=== PATIENT | female | born 1990 | race Caucasian/White ===

== ENCOUNTER 2019-07-15 12:17 | Day surgery (SDC) | payer OTHER, SELFPAY ==
[2019-07-15] VITALS (12 sets, daily range): BP systolic 116–139; BP diastolic 71–108; PULSE 80–134; RESP 13–22; TEMP 36.4–37.7; O2SAT 97–100
--- NOTE | ~2019-07-15 | US_ITS ---
EXAMINATION: US OB <=14 wk fetus w TV DATE: 07/15/2019 16:14 INDICATION: Bleeding during first trimester TECHNIQUE: Real-time pelvic transabdominal and transvaginal ultrasound was performed. COMPARISON: None. FINDINGS: The uterus measures 11.7 x 4.7 x 6.3 cm. No intrauterine gestational sac is identified. Th ere is mobile echogenic debris in the endometrial canal which measures 13 mm in maximum thickness. Th ere is a 1.6 cm intramural fibroid The right ovary measures 2.6 x 1.5 x 0.9 cm. The left ovary measures 2.0 x 1.8 x 1.5 cm. There is no free fluid in the pelvis. IMPRESSION: 1. Findings suggestive of failure. Reviewed, dictated and finalized at location A.
[2019-07-15 12:51] LABS: Basophils Absolute Auto 0.1 K/mm3 (0.0-0.1); Basophils Percent Auto 0.5 % (0.2-1.2); Eosinophils Absolute Auto 0.1 K/mm3 (0-0.3); Eosinophils Percent Auto 0.8 % (0-4.4); Hematocrit 41.1 % (37.0-47.0); Hemoglobin 13.7 g/dL (12.0-15.0); Immature Granulocyte Absolute 0.05 K/mm3 (0.00-0.031); Immature Granulocyte Percent A 0.5 % (0-0.5); Lymphocytes Absolute Auto 2.47 K/mm3 (0.9-3.2); Lymphocytes Percent Auto 25.1 % (18.3-44.2); Mean Corpuscular HGB Conc 33.3 g/dl (32-36); Mean Corpuscular Hemoglobin 27.5 pg (26-34); Mean Corpuscular Volume 82.4 fl (80-100); Mean Platelet Volume 8.8 fl (7.4-10.4); Monocytes Absolute Auto 0.7 K/mm3 (0.1-0.6); Monocytes Percent Auto 6.8 % (2.6-8.5); Neutrophils Absolute Auto 6.5 K/mm3 (1.3-6.7); Neutrophils Percent Auto 66.3 % (45.5-73.1); Platelet Count Result 332 k/mm3 (150-375); Red Blood Count 4.99 M/mm3 (4.2-5.4); Red Cell Distribution Width 13.1 % (11.5-14.5); White Blood Count 9.8 K/mm3 (4.5-10.0)
[2019-07-15] MEDS: SODIUM CHLORIDE 0.9% IV 1,000 ML 999 ML IV CONT ×2 (13:16)
--- NOTE | 2019-07-15 14:01 | ED.GENADULT ---
HPI - General Adult General Chief complaint: Unspecified Stated complaint: having a miscarriage Time Seen by Provider: 07/15/19 12:34 Source: patient Mode of arrival: ambulatory Limitations: no limitations Related Data Home Medications Medication Instructions Recorded Confirmed PNV cmb#95-ferrous fumarate-FA 1 tablet PO DAILY 07/15/19 [] Allergies Allergy/AdvReac Type Severity Reaction Status Date / Time No Known Allergies Allergy Unverified 07/15/19 12:26 PMFSH Family History Family History (Updated 12/21/13 @ 07:13 by DOCTOR UNKNOWN) Father Carcinoma of colon Social History Social History Smoking status: Never smoker Alcohol intake: current Gender identity (if verbalized by the patient): Female Course Course Emergency Course: Patient in the room aware of case findings treatment plan and diagnosis hydrated in the emergency department is hemodynamically stable at this time Consultations Consultation #1: Discussed case with telephoto engineer who will take patient to the surgical suite for D&C Time: 16:45 Vital Signs Vital signs: Vital Signs Temperature 97.6 F 07/15/19 12:24 Pulse Rate 134 H 07/15/19 12:24 Respiratory Rate 18 07/15/19 12:24 Blood Pressure 139/108 H 07/15/19 12:24 Pulse Oximetry 100 07/15/19 12:24 Temperature 97.6 F 07/15/19 12:24 Pulse Rate 100 07/15/19 15:55 Respiratory Rate 20 07/15/19 15:55 Blood Pressure 122/86 07/15/19 15:55 Pulse Oximetry 100 07/15/19 15:55 Medical Decision Making MDM Narrative Medical decision making narrative: Patient with miscarriage with retained products is hemodynamically stable hydrated in the emergency department will be sent to the surgical suite for D&C by telephoto engineer Vital Signs Vital Signs: Vital Signs Temperature 97.6 F 07/15/19 12:24 Pulse Rate 134 H 07/15/19 12:24 Respiratory Rate 18 07/15/19 12:24 Blood Pressure 139/108 H 07/15/19 12:24 Pulse Oximetry 100 07/15/19 12:24 Temperature 97.6 F 07/15/19 12:24 Pulse Rate 100 07/15/19 15:55 Respiratory Rate 20 07/15/19 15:55 Blood Pressure 122/86 07/15/19 15:55 Pulse Oximetry 100 07/15/19 15:55 Lab Data Result diagrams: 07/15/19 12:40 Labs: Lab Results 07/15/19 07/15/19 07/15/19 Range/Units 12:40 12:40 12:40 WBC 9.8 (4.5-10.0) K/mm3 RBC 4.99 (4.2-5.4) M/mm3 Hgb 13.7 (12.0-15.0) g/dL Hct 41.1 (37.0-47.0) % MCV 82.4 (80-100) fl MCH 27.5 (26-34) pg MCHC 33.3 (32-36) g/dl RDW 13.1 (11.5-14.5) % Plt Count 332 (150-375) k/mm3 MPV 8.8 (7.4-10.4) fl Immature Gran % (Auto) 0.5 (0-0.5) % Neut % (Auto) 66.3 (45.5-73.1) % Lymph % (Auto) 25.1 (18.3-44.2) % [place] % (Auto) 6.8 (2.6-8.5) % Eos % (Auto) 0.8 (0-4.4) % Baso % (Auto) 0.5 (0.2-1.2) % Lymph # (Auto) 2.47 (0.9-3.2) K/mm3 [place] # (Auto) 0.7 H (0.1-0.6) K/mm3 Eos # (Auto) 0.1 (0-0.3) K/mm3 Baso # (Auto) 0.1 (0.0-0.1) K/mm3 Abs Immat Gran (auto) 0.05 H (0.00-0.031) K/mm3 Absolute Neuts (auto) 6.5 (1.3-6.7) K/mm3 Absolute Nucleated RBC 0.0 (0.0-0.012) K/mm3 Nucleated RBC % 0.0 (0.0-0.2) % Beta HCG, Quant 7226.00 mIU/ML Blood Type O Positive Doses of RhIg Required 0 Imaging Data Radiologist's impression: ITS Impressions Obstetrics Ultrasound 07/15/19 16:15 IMPRESSION: 1. Findings suggestive of failure. Discharge Plan Discharge Clinical Impression: Threatened miscarriage Patient Disposition: Still a Patient Condition: Stable Prescriptions: No Action PNV cmb#95-ferrous fumarate-FA [] 28 mg iron- 800 mcg Tablet 1 tablet PO DAILY RF: 0 Follow-up/Referrals: UNKNOWN,DOCTOR [Primary Care Provider] -
[2019-07-15 16:53] LABS: Hematocrit 36.5 % (37.0-47.0)
--- NOTE | 2019-07-15 16:53 | PC.NURSE ---
Last PO intake 1100 today
--- NOTE | 2019-07-15 17:09 | PM.IMHP ---
H&P: HPI History of Present Illness Chief complaint: having a miscarriage Narrative: Briseyda Porter is a 28 year old female who was admitted in 1st trimester complaining vaginal bleeding. She has an ultrasound which shows retained products conception after a fairly heavy bleed she is admitted for suction dilatation curettage Review of Systems Review of Systems: All systems reviewed & are unremarkable except as noted in HPI and below PMFSH Family History Family History Father Carcinoma of colon Social History Social History Smoking status: Never smoker Alcohol intake: current Gender identity (if verbalized by the patient): Female Meds Home Medications and Allergies Home Medications Medication Instructions Recorded Confirmed Type PNV cmb#95-ferrous fumarate-FA 1 tablet PO DAILY 07/15/19 History [] Allergies Allergy/AdvReac Type Severity Reaction Status Date / Time No Known Allergies Allergy Unverified 07/15/19 12:26 Vital Signs Vital Signs - 24 hr 07/15/19 12:24 07/15/19 12:31 07/15/19 12:35 Temperature 97.6 F Pulse Rate 134 H 93 98 Respiratory Rate 18 Blood Pressure 139/108 H 136/92 H 125/92 H Pulse Oximetry 100 07/15/19 12:36 07/15/19 13:50 07/15/19 14:50 Temperature Pulse Rate 125 H 95 92 Respiratory Rate 13 22 H Blood Pressure 131/98 H 128/84 138/87 Pulse Oximetry 100 100 07/15/19 15:55 07/15/19 16:50 Temperature Pulse Rate 100 80 Respiratory Rate 20 17 Blood Pressure 122/86 125/92 H Pulse Oximetry 100 97 Exam Const: General: no acute distress Eyes: General: appearance normal, both eyes and all related structures Neck: Neck: supple and no JVD Thyroid: thyroid normal Resp: Effort & Inspection: normal respiratory effort Auscultation: clear to auscultation bilaterally Cardio: Rate: regular rate Rhythm: regular rhythm GI: Inspection: non-distended GI Palp: Yes Soft to palpation, No Tenderness to palpation present (GI) and No Guarding due to palpation present (GI) Auscultation: normal bowel sounds : General: Yes bladder normal to palpation External Female Exam: normal external appearance Speculum Exam - Vagina: normal vaginal discharge and No vaginal bleeding Speculum Exam - Cervix: nontender Bimanual exam- vagina & uterus: bladder normal to palpation and No Cervical tenderness present OB/external & speculum: No vaginal bleeding Skin: General skin exam: no rashes or lesions noted Extrem: General: normal to inspection and no edema Psych: Mental Status: mental status grossly normal Affect: normal affect H&P: Results Labs Labs: Short CBC 07/15/19 07/15/19 Range/Units 12:40 16:50 WBC 9.8 (4.5-10.0) K/mm3 Hgb 13.7 12.0 (12.0-15.0) g/dL Hct 41.1 36.5 L (37.0-47.0) % Plt Count 332 (150-375) k/mm3 Assessment and Plan Additional Plan Impression: Incomplete AB Suction dilatation curettage
--- NOTE | 2019-07-15 17:44 | WPDANESEPPF ---
Anes - Initial Pre Proc Eval Procedure: Operation Date: 07/15/19 18:00 Proposed Procedures p D&C Suction and Sharp - Marc Martins MD Date/Time: 07/15/19 17:44 Surgeon: Marc Martins MD Pre Op Diagnosis: having a miscarriage Patient Data Age: 28 Gender: F Height: 5 ft 3 in Weight: 81.6 kg Last Vital Signs Temp 36.4 C 07/15/19 12:24 Pulse 80 07/15/19 16:50 Resp 17 07/15/19 16:50 BP 116/82 07/15/19 17:40 Pulse Ox 97 07/15/19 16:50 Allergies Allergy/AdvReac Type Severity Reaction Status Date / Time No Known Allergies Allergy Unverified 07/15/19 12:26 Home Medications Medication Instructions Recorded Confirmed Type PNV cmb#95-ferrous fumarate-FA 1 tablet PO DAILY 07/15/19 History [] hydrocodone-acetaminophen [[place]] 1 tablet PO Q4H PRN #20 tablet 07/15/19 Rx Laboratory Tests 07/15/19 07/15/19 07/15/19 12:40 12:40 12:40 WBC 9.8 K/mm3 K/mm3 (4.5-10.0) RBC 4.99 M/mm3 M/mm3 (4.2-5.4) Hgb 13.7 g/dL g/dL (12.0-15.0) Hct 41.1 % % (37.0-47.0) MCV 82.4 fl fl (80-100) MCH 27.5 pg pg (26-34) MCHC 33.3 g/dl g/dl (32-36) RDW 13.1 % % (11.5-14.5) Plt Count 332 k/mm3 k/mm3 (150-375) MPV 8.8 fl fl (7.4-10.4) Immature Gran % (Auto) 0.5 % % (0-0.5) Neut % (Auto) 66.3 % % (45.5-73.1) Lymph % (Auto) 25.1 % % (18.3-44.2) [place] % (Auto) 6.8 % % (2.6-8.5) Eos % (Auto) 0.8 % % (0-4.4) Baso % (Auto) 0.5 % % (0.2-1.2) Lymph # (Auto) 2.47 K/mm3 K/mm3 (0.9-3.2) [place] # (Auto) 0.7 K/mm3 H K/mm3 (0.1-0.6) Eos # (Auto) 0.1 K/mm3 K/mm3 (0-0.3) Baso # (Auto) 0.1 K/mm3 K/mm3 (0.0-0.1) Abs Immat Gran (auto) 0.05 K/mm3 H K/mm3 (0.00-0.031) Absolute Neuts (auto) 6.5 K/mm3 K/mm3 (1.3-6.7) Absolute Nucleated RBC 0.0 K/mm3 K/mm3 (0.0-0.012) Nucleated RBC % 0.0 % % (0.0-0.2) Beta HCG, Quant 7226.00 mIU/ML mIU/ML Blood Type O Positive Doses of RhIg Required 0 07/15/19 16:50 WBC RBC Hgb 12.0 g/dL g/dL (12.0-15.0) Hct 36.5 % L % (37.0-47.0) MCV MCH MCHC RDW Plt Count MPV Immature Gran % (Auto) Neut % (Auto) Lymph % (Auto) [place] % (Auto) Eos % (Auto) Baso % (Auto) Lymph # (Auto) [place] # (Auto) Eos # (Auto) Baso # (Auto) Abs Immat Gran (auto) Absolute Neuts (auto) Absolute Nucleated RBC Nucleated RBC % Beta HCG, Quant Blood Type Doses of RhIg Required Patient hx anesthesia problems: none Family hx anesthesia problems: none [facility] Family History Family History Father Carcinoma of colon Social History Social History Smoking status: Never smoker Alcohol intake: current Gender identity (if verbalized by the patient): Female Anes - Eval Final PreProcedure Day of Procedure 07/15/19 17:44 Patient weight: obese Heart: regular rate and rhythm Lungs: clear to auscultation Airway: Mallampati scale class 1 Neurological: alert and oriented Last oral intake: >/= 8 hours ASA classification: II Emergent: yes Anesthetic plan: proceed Anesthesia type and monitoring: general GIVS and standard monitoring Informed Consent: The patient's anesthetic plan and its attendant risks and benefits were discussed with the patient/family/POA. Questions were solicited and answers provided to the satisfaction of the patient/family/POA.
[2019-07-15] MEDS: LACTATED RINGERS 1,000 ML 30 ML IV CONT (17:45)
--- NOTE | 2019-07-15 18:03 | PM.PROC ---
Procedure Note - Detailed Date of procedure: 07/15/19 Pre-op diagnosis: having a miscarriage Surgeon: Marc Martins MD Postop diagnosis: Incomplete AB Anesthesia: Monitored anesthesia care paracervical block EBL: 25cc Complications: None Description of procedure: The patient was prepped and draped in the normal sterile fashion placed in the dorsal lithotomy position. Under excellent IV sedation weighted speculum placed post formed vagina. Anterior lip of the cervix grasped with single-tooth tenaculum. 2.5cc of 1% xylocaine anesthesia placed at 2, 4, 6, 8 of the cervix. Uterus sounded 10cm. Serial dilatation with fragmented out performed followed passes the 5 minutes the 10. Suction moderate amount of tissue was removed. With good grating sound was heard. The instruments removed. All sponge needle instrument counts were correct. There were no complications
== END 2019-07-15 18:52 | disposition home or self-care (01) ==
LOC: ANHED 16:46 → ANHSURGERY 16:48
PROVIDERS: Emergency Medicine Emergency Medical Services; Emergency Provider Emergency Medicine; Visit Provider Obstetrics & Gynecology
PROC: (CPT 59812; principal; 2019-07-15 18:00)
DX: O03.4 Incomplete spontaneous abortion without complication (principal)
CPT/HCPCS: 59812; 36415; 76801; 76817; 84702; 85014; 85018; 85025; 86900; 86901; 88305; 96365; 99285; A9270; J0131; J2250; J2405; J2704; J3010; J7030; J7120

== ENCOUNTER 2019-08-14 17:01 | Outpatient (CLI) | payer OTHER, SELFPAY ==
[2019-08-14 18:12] LABS: Beta HCG Quantitative < 2.39 mIU/ML
== END 2019-08-14 17:02 | disposition home or self-care (01) ==
PROVIDERS: PCP Family Medicine; Visit Provider Obstetrics & Gynecology
DX: Z32.00 Encounter for pregnancy test, result unknown (principal)
CPT/HCPCS: 36415; 84702

== ENCOUNTER 2021-04-30 11:19 | Emergency (ER) | payer OTHER, SELFPAY ==
--- NOTE | ~2021-04-30 | US_ITS ---
EXAMINATION: US OB <= 14 weeks fetus EXAM DATE: 04/30/2021 18:22 INDICATION: Vaginal bleeding. 2nd trimester. TECHNIQUE: Pelvic obstetrical transabdominal sonogram was performed by a technologist. There are mu ltiple grayscale and Doppler images available for interpretation. There are no earlier studies of th is gestation for comparison. FINDINGS: Uterus measures 13.2 x 7.7 x 11.2 cm. There is intrauterine gestation sac. pole wit h heart rate confirmed at 169 beats per minute. The 7.5 cm crown-rump length corresponds to estimate d gestational age by ultrasound of 13 weeks 5 days, estimated date of confinement 10/31/2021. No retrop lacental hemorrhage suspected, no placenta previa suspected. Focal lower uterine segment anterior fib roid measuring up to 1.9 cm. IMPRESSION: 1. Live intrauterine gestation without evidence of retroplacental hemorrhage. 2. Small lower uterine segment fibroid. Reviewed, dictated and finalized at location A. [employer]
[2021-04-30 11:21] VITALS: BP 137/89; PULSE 110; RESP 16; TEMP 37.2; O2SAT 100
[2021-04-30 14:04] VITALS: BP 130/85; PULSE 90; RESP 18; TEMP 36.3; O2SAT 100
[2021-04-30 16:07] VITALS: BP 126/88; PULSE 94; RESP 16; TEMP 36.2; O2SAT 100
[2021-04-30 17:30] VITALS: BP 126/91; PULSE 101; RESP 18; TEMP 36.7; O2SAT 100
--- NOTE | 2021-04-30 17:42 | PC.NURSE ---
Called US, patient is next to be seen.
[2021-04-30 17:58] LABS: Basophils Percent Auto 0.3 % (0.2-1.2); Eosinophils Percent Auto 0.1 % (0-4.4); Hematocrit 35.8 % (37.0-47.0); Hemoglobin 12.4 g/dL (12.0-15.0); Immature Granulocyte Absolute 0.05 K/mm3 (0.00-0.031); Immature Granulocyte Percent A 0.4 % (0-0.5); Lymphocytes Percent Auto 18.5 % (18.3-44.2); Mean Corpuscular HGB Conc 34.6 g/dl (32-36); Mean Corpuscular Hemoglobin 29.5 pg (26-34); Mean Corpuscular Volume 85.2 fl (80-100); Mean Platelet Volume 8.6 fl (7.4-10.4); Monocytes Absolute Auto 0.3 K/mm3 (0.1-0.6); Monocytes Percent Auto 2.9 % (2.6-8.5); Neutrophils Absolute Auto 9.2 K/mm3 (1.3-6.7); Neutrophils Percent Auto 77.8 % (45.5-73.1); Platelet Count Result 253 k/mm3 (150-375); Red Cell Distribution Width 13.2 % (11.5-14.5); White Blood Count 11.9 K/mm3 (4.5-10.0)
[2021-04-30 18:09] LABS: Anion Gap 9 mmol/L (8-16); Blood Urea Nitrogen 7 mg/dL (7-17); Calcium 9.4 mg/dL (8.4-10.2); Carbon Dioxide 24 mmol/L (22-30); Chloride 104 mmol/L (98-107); Estimated CRCL calculation 131 ml/min; Estimated Glomerular Filt Rate > 60; Glucose 90 mg/dL (65-110); Potassium 3.9 mmol/L (3.4-5.0); Sodium 137 mmol/L (137-145)
--- NOTE | 2021-04-30 19:28 | ED.FEMALEGU ---
HPI - Female Genitourinary General Chief complaint: Vaginal Bleeding Stated complaint: 13 weeks /vaginal bleeding Time Seen by Provider: 04/30/21 17:32 Source: patient and family Mode of arrival: ambulatory Limitations: no limitations History of Present Illness HPI Narrative: 30-year-old 3 para 1 A1 presently about 13 weeks of gestation here with complaints of vaginal bleeding since this morning. Patient states she passed out dime sized clot early this morning. No further bleeding has mild lower abdominal cramping. MD elicited complaint: vaginal bleeding Pertinent past history: prior miscarriages Onset (ago): day(s) (1) Severity: mild Quality of pain: cramping Consistency: constant Vaginal discharge: none Vaginal bleeding: scant Related Data Home Medications Medication Instructions Recorded Confirmed PNV cmb#95-ferrous fumarate-FA 1 tablet PO DAILY 07/15/19 [] Allergies Allergy/AdvReac Type Severity Reaction Status Date / Time No Known Allergies Allergy Verified 04/30/21 17:34 Review of Systems Review of Systems: All systems reviewed & are unremarkable except as noted in HPI and below Constitutional: Constitutional: Reports no additional constitutional complaints Eyes: Eyes: Reports no additional eye complaints ENT: Reports system reviewed and no additional complaints, except as documented Gastrointestinal: Gastrointestinal: Reports no additional gastrointestinal complaints Genitourinary: Genitourinary: Reports as per HPI Musculoskeletal: Musculoskeletal: Reports no additional musculoskeletal complaints [facility] Family History Family History Father Carcinoma of colon Social History Social History Smoking status: Never smoker Alcohol intake: current Gender identity (if verbalized by the patient): Female Exam Narrative: GENERAL: Well-appearing, well-nourished, and in no acute distress. HEAD: Normocephalic, atraumatic. EYES: PERRLA and EOMI. NECK: Supple. CHEST: Clear to auscultation. No respiratory distress. HEART: Regular rate and rhythm. No murmur heard. Normal peripheral pulses. ABDOMEN: Soft, nontender, nondistended, Pelvic normal external genitalia, vaginal vault clear no blood. Cervix closed EXTREMITIES: Normal range of motion. No edema. SKIN: Warm, dry, no rash. NEURO: No focal deficits. Alert and oriented x3. PSYCH: Normal mood and affect. Course Course Emergency Course: Patient had no further episodes of vaginal bleeding since morning as well as in the ER. Informed her about her lab work, ultrasound findings. Discussed with Dr. Barry . Vital Signs Vital signs: Vital Signs Temperature 37.2 C 04/30/21 11:21 Pulse Rate 110 H 04/30/21 11:21 Respiratory Rate 16 04/30/21 11:21 Blood Pressure 137/89 04/30/21 11:21 Pulse Oximetry 100 04/30/21 11:21 Temperature 36.7 C 04/30/21 17:30 Pulse Rate 101 H 04/30/21 17:30 Respiratory Rate 18 04/30/21 17:30 Blood Pressure 126/91 H 04/30/21 17:30 Pulse Oximetry 100 04/30/21 17:30 MDM - Female Genitourinary Lab Data Result diagrams: 04/30/21 17:50 04/30/21 17:50 Labs: Lab Results 04/30/21 04/30/21 Range/Units 17:50 17:50 WBC 11.9 H (4.5-10.0) K/mm3 RBC 4.20 (4.2-5.4) M/mm3 Hgb 12.4 (12.0-15.0) g/dL Hct 35.8 L (37.0-47.0) % MCV 85.2 (80-100) fl MCH 29.5 (26-34) pg MCHC 34.6 (32-36) g/dl RDW 13.2 (11.5-14.5) % Plt Count 253 (150-375) k/mm3 MPV 8.6 (7.4-10.4) fl Immature Gran % (Auto) 0.4 (0-0.5) % Neut % (Auto) 77.8 H (45.5-73.1) % Lymph % (Auto) 18.5 (18.3-44.2) % [place] % (Auto) 2.9 (2.6-8.5) % Eos % (Auto) 0.1 (0-4.4) % Baso % (Auto) 0.3 (0.2-1.2) % Lymph # (Auto) 2.20 (0.9-3.2) K/mm3 [place] # (Auto) 0.3 (0.1-0.6) K/mm3 Eos # (Auto) 0.0 (0-0.3) K/mm3 Ba
[2021-04-30 20:02] VITALS: BP 132/86; PULSE 104; RESP 16; TEMP 36.7; O2SAT 100
== END 2021-04-30 20:00 | disposition home or self-care (01) ==
PROVIDERS: Emergency Provider Family Medicine; PCP Family Medicine
DX: O20.0 Threatened abortion (principal); Z3A.13 13 weeks gestation of pregnancy
CPT/HCPCS: 36415; 76801; 80048; 84702; 85025; 99284

== ENCOUNTER 2021-10-29 04:53 | Inpatient (IN) | payer OTHER, SELFPAY ==
[2021-10-29] VITALS (81 sets, daily range): BP systolic 107–139; BP diastolic 37–90; PULSE 67–123; RESP 16–18; TEMP 36.1–37.4; O2SAT 97–100; BMI 35.1
--- NOTE | 2021-10-29 05:24 | LDADM ---
This patient, Briseyda Ragland, was admitted to Labor/Delivery/Recovery 104 on 10/29/21 at 04:53. Plans for labor, pain management and were discussed with patient. Patient/family oriented to hospital policies and general routines including ID bracelet, bed and alarms, visiting hours, pain management, procedures, bathroom and other care routines, personal items, smoking policy, room service/diet and guest tray routines, infant security routines, and visiting hours. Patient/Family are encouraged to report perceived risks to care and to ask questions if they do not understand what they are told or what they should do. See OBIX for further documentation.
[2021-10-29 05:26] LABS: Basophils Percent Auto 0.3 % (0.2-1.2); Eosinophils Percent Auto 0.2 % (0-4.4); Hematocrit 36.8 % (37.0-47.0); Immature Granulocyte Percent A 1.1 % (0-0.5); Lymphocytes Absolute Auto 2.05 K/mm3 (0.9-3.2); Lymphocytes Percent Auto 21.7 % (18.3-44.2); Mean Corpuscular HGB Conc 32.6 g/dl (32-36); Mean Corpuscular Hemoglobin 26.4 pg (26-34); Mean Corpuscular Volume 80.9 fl (80-100); Mean Platelet Volume 9.5 fl (7.4-10.4); Monocytes Absolute Auto 0.5 K/mm3 (0.1-0.6); Monocytes Percent Auto 5.5 % (2.6-8.5); Neutrophils Absolute Auto 6.7 K/mm3 (1.3-6.7); Neutrophils Percent Auto 71.2 % (45.5-73.1); Platelet Count Result 241 k/mm3 (150-375); Red Blood Count 4.55 M/mm3 (4.2-5.4); Red Cell Distribution Width 15.8 % (11.5-14.5); White Blood Count 9.4 K/mm3 (4.5-10.0)
[2021-10-29] MEDS: OXYTOCIN 30 UNITS/NS 500 ML 30 UNITS/500 ML BAG IV CONT (05:50)
[2021-10-29] MEDS: LACTATED RINGERS 1,000 ML 125 ML IV CONT (05:50)
--- NOTE | 2021-10-29 07:30 | WPDOBADMIT ---
Obstetrics - Admit Note Admission Note: record reviewed. Additions to the history and/or subsequent changes in the physical findings follow. 30 y/o at 39 weeks here for scheduled induction of labor. GBS neg. EFW per US at 38 weeks suggested 9#1oz EFW. We have reviewed risks of induction of labor, as well as risks of shoulder dystocia and risks of . She understands and would like to proceed with induction of labor. AVSS NST reactive TOCO: contractions irregularly ABD soft, nontender, gravid, vertex EXT nontender Cervix 3/50/-2. Vertex. AROM with clear fluid. A: IUP at term with favorable cervix. P: She desires induction of labor, as above. Oxytocin. She plans epidural.
--- NOTE | 2021-10-29 09:55 | WPDANESEPPF ---
Anes - Initial Pre Proc Eval Date/Time: 10/29/21 09:55 Surgeon: Angelo Jeffery MD Pre Op Diagnosis: IOL Patient Data Age: 30 Gender: F Height: 1.6 m Weight: 90 kg Last Vital Signs Temp 36.7 C 10/29/21 09:30 Pulse 108 H 10/29/21 09:53 BP 130/80 10/29/21 09:53 Pulse Ox 98 10/29/21 09:54 O2 Del Method Room Air 10/29/21 05:22 Allergies Allergy/AdvReac Type Severity Reaction Status Date / Time No Known Allergies Allergy Verified 04/30/21 17:34 Home Medications Medication Instructions Recorded Confirmed Type vit no.95-ferrous 1 tablet PO DAILY 07/15/19 10/29/21 History fumarate 28 mg-folic acid 800 mcg tablet () Laboratory Tests 10/29/21 10/29/21 10/29/21 05:21 05:21 05:21 WBC 9.4 K/mm3 K/mm3 (4.5-10.0) RBC 4.55 M/mm3 M/mm3 (4.2-5.4) Hgb 12.0 g/dL g/dL (12.0-15.0) Hct 36.8 % L % (37.0-47.0) MCV 80.9 fl fl (80-100) MCH 26.4 pg pg (26-34) MCHC 32.6 g/dl g/dl (32-36) RDW 15.8 % H % (11.5-14.5) Plt Count 241 k/mm3 k/mm3 (150-375) MPV 9.5 fl fl (7.4-10.4) Immature Gran % (Auto) 1.1 % H % (0-0.5) Neut % (Auto) 71.2 % % (45.5-73.1) Lymph % (Auto) 21.7 % % (18.3-44.2) [place] % (Auto) 5.5 % % (2.6-8.5) Eos % (Auto) 0.2 % % (0-4.4) Baso % (Auto) 0.3 % % (0.2-1.2) Lymph # (Auto) 2.05 K/mm3 K/mm3 (0.9-3.2) [place] # (Auto) 0.5 K/mm3 K/mm3 (0.1-0.6) Eos # (Auto) 0.0 K/mm3 K/mm3 (0-0.3) Baso # (Auto) 0.0 K/mm3 K/mm3 (0.0-0.1) Abs Immat Gran (auto) 0.10 K/mm3 H K/mm3 (0.00-0.031) Absolute Neuts (auto) 6.7 K/mm3 K/mm3 (1.3-6.7) Absolute Nucleated RBC 0.0 K/mm3 K/mm3 (0.0-0.012) Nucleated RBC % 0.0 % % (0.0-0.2) RPR Pending Blood Type O Positive Antibody Screen Negative Patient hx anesthesia problems: none Family hx anesthesia problems: none Results Review: All pre-operative results and documents have been reviewed as part of the pre-operative evaluation. [facility] Family History Family History Father Carcinoma of colon Grandparent Hypertension Diabetes mellitus Mother Hyperthyroidism Social History Social History Smoking status: Never smoker Second hand tobacco smoke exposure: No Alcohol intake: current Substance use: never Gender identity (if verbalized by the patient): Female Spiritual care concerns: No Anes - Eval Final PreProcedure Day of Procedure 10/29/21 09:55 Patient weight: obese Heart: regular rate and rhythm Lungs: clear to auscultation Airway: Mallampati scale class II Neurological: alert and oriented ASA classification: II Emergent: no Anesthetic plan: proceed Anesthesia type and monitoring: regional epidural and standard monitoring Results Review: All pre-operative results and documents have been reviewed as part of the pre-operative evaluation. Informed Consent: The patient's anesthetic plan and its attendant risks and benefits were discussed with the patient/family/POA. Questions were solicited and answers provided to the satisfaction of the patient/family/POA.
--- NOTE | 2021-10-29 12:27 | P.PCNOB_ITS ---
OB - Delivery Note Procedure Delivery date: 10/29/21 Procedure: Induction of labor with Induction method: Per Pitocin Protocol Delivery augmentation: Rupture of Membranes Delivery monitor: External FHT and External Uterine Route of delivery: Laceration Description: Perineal - 2nd Degree Delivery repair: vicryl (3-0) Specimen: Yes (cord blood) Quantitative Blood Loss (ml): 155 Anesthesia type: Epidural Disposition: PACU Complications: None Narrative: 30 y/o at 39 weeks gestation who presented to the hospital for induction of labor. Oxytocin was administered intravenously. Amniotomy was performed with return of clear fluid. She received an epidural for pain control. Her labor progressed and her cervix dilated completely. She pushed with good effort and delivered the 's head to the perineum, followed by the body. The nose and mouth were bulb suctioned. After a delay, the cord was clamped and cut. The infant was handed off the field. Cord blood was collected. The placenta delivered spontaneously and was grossly normal in appearance. The usual 3 vessel cord was noted. A second degree midline perineal laceration was sustained. This was reapproximated using 3 0 Vicryl in the usual layered fashion. Excellent hemostasis resulted as did excellent reapproximation of the normal anatomy. Needle and instrument counts were correct. The patient was taken to recovery room in stable condition. The went to the nursery in stable condition. I was present and scrubbed for the entire delivery. [place] Baby Date of : 10/29/21 Time of : 12:08 Weeks of gestation at delivery: 39 gender: Male Weight (pounds): 9 Weight (ounces): 0 presentation: vertex position: Left Occiput Transverse Placenta delivery description: Spontaneous and Normal Configuration Cord Vessel Description: 3 Vessels and Delayed Cord Clamping score one minute: 9 score five minutes: 9
--- NOTE | 2021-10-29 12:29 | PM.OBDSVD ---
DS: Admitting Diagnosis Discharge Date 10/30/21 Admitting Diagnosis IUP at 39 weeks DS: Discharge Diagnosis Discharge Diagnosis (1) (normal spontaneous vaginal delivery): Code(s): O80 - Encounter for full-term uncomplicated delivery Status: Acute OB - DS: Summary OB Procedures : None OB Procedures Intrapartum: Spontaneous Vag Delivery OB Procedures: : None Time Spent with Patient Time attestation: Total time spent providing and/or coordinating discharge services: DS: Data Data Completed and Pending Labs on day of discharge: Labs from last 24 hours 10/29/21 10/29/21 10/29/21 05:21 05:21 05:21 WBC 9.4 RBC 4.55 Hgb 12.0 Hct 36.8 L MCV 80.9 MCH 26.4 MCHC 32.6 RDW 15.8 H Plt Count 241 MPV 9.5 Immature Gran % (Auto) 1.1 H Neut % (Auto) 71.2 Lymph % (Auto) 21.7 [place] % (Auto) 5.5 Eos % (Auto) 0.2 Baso % (Auto) 0.3 Lymph # (Auto) 2.05 [place] # (Auto) 0.5 Eos # (Auto) 0.0 Baso # (Auto) 0.0 Abs Immat Gran (auto) 0.10 H Absolute Neuts (auto) 6.7 Absolute Nucleated RBC 0.0 Nucleated RBC % 0.0 RPR Pending Blood Type O Positive Antibody Screen Negative Discharge Plan Discharge Attending physician on discharge: Angelo Jeffery Discharging Clinician: Angelo Jeffery Patient Disposition: Home, Self-Care Activity: pelvic rest Diet: regular Discharge Instructions: Call or return if temperature above 100.4? F, increased abdominal pain, increased vaginal bleeding or any new problems. Stand Alone Forms: General Discharge Information Follow-up/Referrals: Angelo Jeffery MD [Physician] - 6 Weeks Discharge Medications: New ibuprofen 600 mg tablet 600 mg PO Q6H PRN (Reason: cramps) Qty: 30 0RF Continued PNV cmb#95-ferrous fumarate-FA [] 28 mg iron- 800 mcg Tablet 1 tablet PO DAILY Date of admission: 10/29/21 04:53 Primary Care Provider: LyndaMarc Admitting Provider: Angelo Jeffery Attending physician on admission: Angelo Jeffery Condition: Stable
[2021-10-29] MEDS: OXYTOCIN 30 UNITS/NS 500 ML 30 UNITS/500 ML BAG 125 UNITS IV CONT (12:39)
[2021-10-29 12:53] LABS: Rapid Plasma Reagin Non-Reactive (NonReactive)
--- NOTE | 2021-10-29 15:00 | OBPPTRN ---
Patient transferred to post room # 290 via wheelchair. Support person present. Oriented to unit, room, information board, rooming in, admission packet and security measures. Patient verbalizes understanding.
[2021-10-29] MEDS: IBUPROFEN 600 MG TABLET PO (20:49)
[2021-10-30 04:50] VITALS: BP 123/89; PULSE 76; RESP 18; TEMP 36.4
[2021-10-30] MEDS: IBUPROFEN 600 MG TABLET PO (04:56)
[2021-10-30 05:12] LABS: Hematocrit 33.2 % (37.0-47.0); Hemoglobin 10.4 g/dL (12.0-15.0)
[2021-10-30 08:35] VITALS: BP 113/81; PULSE 72; RESP 16; TEMP 36.6; O2SAT 100
--- NOTE | 2021-10-30 08:41 | WPDANLDPN2 ---
Anes-Prog Note L&D Date/Time: 10/30/21 08:41 Neuro status: Neuro function grossly intact. Vital Signs: Last Vital Signs Temp 36.4 C L 10/30/21 04:50 Pulse 76 10/30/21 04:50 Resp 18 10/30/21 04:50 BP 123/89 10/30/21 04:50 Pulse Ox 97 10/29/21 15:05 O2 Del Method Room Air 10/29/21 19:30 Pain score (VAS): 0 Patient feedback: Patient satisfied with anesthetic care.
[2021-10-30] MEDS: MULTIVIT/MIN/PREN/FOL AC/IRON TABLET 1 TAB PO (08:50)
[2021-10-30 11:44] VITALS: BP 127/81; PULSE 98; RESP 16; TEMP 36.6; O2SAT 100
--- NOTE | 2021-10-30 13:11 | PM.OBPNVD ---
OB - PN: Subj Subjective Date/time seen: 10/30/21 13:11 Narrative: Pain OK. Would like to go home. Would like circumcision for son. OB - PN: Obj Data Labs CBC & Chem 7: 10/30/21 05:01 Labs: Laboratory Results - last 24 hr 10/30/21 05:01 Hgb 10.4 L Hct 33.2 L OB - PN A/P Plan Comments: A: PPD#1, doing well. P: Reviewed circumcision. Home to f/u 6 weeks. Exam Psych: Other: AVSS ABD soft, nontender, fundus firm EXT nontender
--- NOTE | 2021-10-30 13:17 | PC.NURSE ---
This morning Primary RN reported mother is independently her .
[2021-10-31 10:12] VITALS: BP 126/95; PULSE 91; RESP 20; TEMP 37.1; O2SAT 99
== END 2021-10-30 15:18 | disposition home or self-care (01) | DRG 807 ==
LOC: ANHLDR 12:30 → ANHOB2 15:04
PROVIDERS: Admitting Provider Obstetrics & Gynecology; PCP Family Medicine; Visit Provider Obstetrics & Gynecology
DX: O76 Abnormality in fetal heart rate and rhythm complicating labor and delivery (principal); Z37.0 Single live birth; O70.1 Second degree perineal laceration during delivery; Z3A.39 39 weeks gestation of pregnancy
CPT/HCPCS: 36415; 85014; 85018; 85025; 86592; 86850; 86900; 86901; A9270; J2590; J2795; J7120